=== PATIENT | female | born 1980 | race Caucasian/White ===

== ENCOUNTER 2023-10-31 13:15 | Inpatient (IN) | payer BC, SELFPAY ==
[2023-10-31 08:14] VITALS: BP 113/92
[2023-10-31] MEDS: ZOFRAN ODT (ORALLY DISINTEGRATING) 4 MG PO (08:26)
--- NOTE | 2023-10-31 09:00 | ED.GENMED ---
History of Present Illness
General
Chief Complaint: Headache
Source: patient and spouse
Exam Limitations: none
Time Seen by Provider: 10/31/23 08:50
Travel History
Have you had any contact with someone who has COVID-19?: No
Do you have any symptoms of coronavirus? Fever > 100 degrees, chills, cough, shortness of breath, sore throat, loss of taste or smell, muscle aches, or headache?: No
History of Present Illness
History of Present Illness:
43-year-old female started with a headache Wednesday afternoon. Usually responds to Excedrin Migraine and Motrin. However this 1 has not. Severe right-sided somewhat retrobulbar or right frontal with nausea and photophobia. No neurologic symptoms.
Has a history of migraines. Seems to feel somewhat like a migraine although patient is not sure. However degree of headache is much worse than typical migraine.
Past History
Past History
ED Past Medical History: Other (Migraines)
ED Past Surgical History: None and Gynecological
Social History
Tobacco: Non-smoker
Alcohol: Occasional
Drug: None
Personal:
Review of Systems
Review of Systems
All Other Systems: Not applicable
Constitutional: Denies fever
Musculoskeletal: Denies neck pain
Neurological: Denies dizzy, weakness or numbness
Phy Exam
Physical Exam
Physical Exam:
GENERAL: Alert and oriented. Nontoxic but fairly quiet and wants to keep her eyes closed lying on her side
EYE: Orbits normal. Extraocular muscles intact. Discharge
NECK: Supple, no carotid bruit
CARDIAC: Regular rate and rhythm without any obvious murmurs.
LUNGS: Clear breath sounds,normal
ABDOMEN: Soft, without focal tenderness or distention
NEUROLOGICAL: Alert and oriented , grossly non-focal. Speech normal. Store Consultant normal but generally weak. Lower extremity strength normal. Nonfocal.
SKIN: Warm and dry, no rash or lesion, no discoloration, skin intact.
MUSCULOSKELETAL: No edema,no deformity.Good color
PSYCH: Normal and appropriate interaction.
Course
Orders/Labs/Results
Orders:
Orders
10/31/23 08:23
Ondansetron Orally Disint [Zofran Odt (Orally Disintegrating)] 4 mg .ROUTE .STK-MED ONE
10/31/23 08:26
Ondansetron Orally Disint [Zofran Odt (Orally Disintegrating)] 4 mg PO NOW STA
10/31/23 08:58
IV Insert/Care/Rem.- Treatment PRN
0.9% Sodium Chloride 1000 ml [Nss] 1,000 ml IV BOLUS
Acetaminophen 1000MG/100Ml [Ofirmev] 1,000 mg in 100 ml IV ONCE
Acetaminophen IV Indication:: ED Narcotic Naive Pt-ONCE
Diphenhydramine [Benadryl] 25 mg IV NOW STA
Metoclopramide [Reglan] 10 mg IV NOW STA
Test Result ONCE
10/31/23 08:59
CT Head W/o Iv Contrast Urgent
Comment:
Reason For Exam: severe right sided leary
10/31/23 09:03
Basic Metabolic Panel Urgent
Complete Blood Count/With Diff Urgent
Erythrocyte Sed Rate Urgent
HCG, Serum Qualitative Screen Urgent
10/31/23 11:46
Ketorolac [Toradol] 15 mg IV NOW STA
Abnormal Lab Results
10/31/23
09:03
RDW 15.6 H %
(11.5-14.5)
Abs Immat Gran (auto) 0.1 H 10^3/uL
(0-0.05)
Absolute Neuts (auto) 7.5 H 10^3/uL
(1.4-6.5)
Neutrophils % 77.6 H %
(42.2-75.2)
Lymphocytes % 14.0 L %
(20.5-51.1)
Creatinine 0.4 L mg/dL
(0.6-1.0)
Glucose 101 H mg/dl
(70-99)
10/31/23 09:03
10/31/23 09:03
Vital Signs
Initial and Last Documented VS:
Initial Vital Signs
Temp Pulse Resp BP Pulse Ox
97.6 F 83 20 113/92 99
10/31/23 08:14 10/31/23 08:14 10/31/23 08:14 10/31/23 08:14 10/31/23 08:14
Last Documented Vital Signs
Temp Pulse Resp BP Pulse Ox
97.6 F 67 16 115/78 98
10/31/23 08:14 10/31/23 11:14 10/31/23 11:14 10/31/23 11:14 10/31/23 11:14
MDM/Problems Addressed
Differential Diagnosis Includes:
Symptom complex is most consistent with a severe migraine. No neurologic symptoms. No neck pain. No chiropractic manipulation. But because this headache is worse than typical we will get a CT. Nothing to suspect carotid dissection at this time.
Will treat for migraine and observe for improvement
*Critical Care Note
Total Time (30-74mins, 75-104mins- exclusive of procedures): Not Applicable
Data Reviewed
Review of Other/Old Records Reveals: Labs and Records
Update Note
Update Note:
Discussed with neurology. Reviewed CT finding. Adenoma possibly has something to do with her headaches. Given her ongoing symptoms and CT findings patient will be admitted for further care and evaluation.
ED Attending Note
-
Portions of this chart may have been created with voice recognition software.� Occasional wrong word or��sound alike� substitutions may have occurred due to the inherent limitations of voice recognition software.
Discharge Plan
Departure
Patient Disposition: Admit
Date of Disposition: 10/31/23
Time of Disposition: 11:46
Presentation/result/management discussed w/ accepting MD/DO: Neurology
Discharge Problem:
Intractable headache, Pituitary adenoma
Prescriptions:
No Action
Liver Pills
1 tab PO DAILY
ferrous sulfate 325 mg (65 mg iron) tablet
325 mg PO Q OTHER DAY Qty: 15 1RF
tranexamic acid 650 mg tablet
1,300 mg PO TID Qty: 30 0RF
Rx Instructions:
Take this medication only until vaginal bleeding stops so if bleeding stops in 2 days then stop. Max 5 days
cephalexin 500 mg capsule
500 mg PO Q6H 7 Days Qty: 28 0RF
Referrals:
Aurelio Morse MD [Family Provider] -
Interventions
Interventions:
*Risk Screen - Suicide Last Done: 10/31/23 09:00
*General Assessment Last Done: 10/31/23 09:00
*Neglect/Abuse Screening Last Done: 10/31/23 09:00
*ED COVID-19 Vaccine History Last Done: 10/31/23 09:00
ED- Neurological Assessment Last Done: 10/31/23 09:00
[2023-10-31] MEDS: REGLAN 10 MG IV ×2 (09:11→22:19)
[2023-10-31] MEDS: BENADRYL 25 MG IV ×2 (09:11→23:58)
[2023-10-31] MEDS: OFIRMEV 100 IV (09:12)
[2023-10-31] MEDS: NSS 1000 IV (09:13)
[2023-10-31 09:36] LABS: % Basophils 0.5 % (0-2); % Eosinophils 1.1 % (0-6); % Immature Granulocytes 0.5 % (0-0.5); % Monocytes 6.3 % (1.7-9.3); % Neutrophils 77.6 % (42.2-75.2); Absolute Basophils 0.1 10^3/uL (0-0.2); Absolute Eosinophils 0.1 10^3/uL (0-0.7); Absolute Immature Granulocytes 0.1 10^3/uL (0-0.05); Absolute Lymphocytes 1.4 10^3/uL (1.2-3.4); Absolute Monocytes 0.6 10^3/uL (0.1-0.6); Absolute Neutrophils 7.5 10^3/uL (1.4-6.5); Hematocrit 37.4 % (37.0-47.0); Hemoglobin 13.3 g/dL (12.0-16.0); Mean Corp Hgb Conc. 35.6 g/dL (33.0-37.0); Mean Corpuscular Hgb 28.9 pg (27.0-31.0); Mean Corpuscular Volume 81.1 fL (81.0-99.0); Mean Platelet Volume 8.6 fL (7.4-10.4); Nucleated Red Blood Cells % 0 %; Platelet Count 265 10^3/uL (130-400); Red Blood Cell Count 4.61 10^6/uL (4.20-5.40); Red Cell Dist. Width 15.6 % (11.5-14.5); White Blood Cell Count 9.7 10^3/uL (4.8-10.8)
[2023-10-31 09:40] LABS: HCG, Serum Qualitative Screen Negative
[2023-10-31 09:45] LABS: Blood Urea Nitrogen 8 mg/dl (7-17); Calcium 9.3 mg/dl (8.4-10.2); Carbon Dioxide 24 mmol/L (22-30); Chloride 102 mmol/L (98-107); Glucose 101 mg/dl (70-99); Potassium 3.8 mmol/L (3.5-5.1); Sodium 136 mmol/L (135-145); eGFR > 60.00
[2023-10-31 10:06] LABS: Erythrocyte Sed Rate 18 mm/hour (0-20)
[2023-10-31 11:14] VITALS: BP 115/78
[2023-10-31] MEDS: TORADOL 15 MG IV (11:50)
--- NOTE | 2023-10-31 12:34 | HPS.HSE ---
Family Physician
-
Family Physician: Aurelio Morse
Chief Complaint
-
Severe headache
History of Present Illness
43-year-old woman started with a headache 2 days ago.� She Usually responds to Excedrin Migraine and Motrin, however this time it has not.� She has Severe right-sided retrobulbar - right frontal headache, with associated nausea and photophobia.� No
focal neurologic symptoms.� Has does have a history of migraines and although this seems to feel a bit like a migraine, she is not certain this is like her migraine.� However, the degree of headache is much worse than typical migraine. No change in
caffeine, no recent illness. No obvious trigger. No cahnges in vision.
Medical History
Past Medical History
Past Medical History: Reports Other
Additional Past Medical History:
Migraines
Iron deficiency anemia
Mild intermittent asthma without complication
Vitamin D deficiency
Cyst of right breast
vaginal bleeding
diabetes mellitus, likely type two, not taking medication for it. (? found in chart)
colon cancer (? found in chart) not likely, but does have diverticulosis
CAD (coronary artery disease) (? Found in chart)
Past Surgical History: Reports Other
Additional Past Surgical History:
None
Social History
Tobacco: Non-smoker
Alcohol: None
Drug: None
Personal:
Living: With Family
Family History
Family History: Not pertinent
Allergies / Home Medications
Allergies reflects when Allergies were last updated in [facility].
Home Medications with original date entered in [facility]
Allergy/Medication List:
Allergies
Allergy/AdvReac Type Severity Reaction Status Date / Time
bee venom protein (honey bee) Allergy Intermediate Swelling Verified 10/31/23 08:14
codeine AdvReac VOMITING, Verified 10/31/23 08:14
RASH
Home Medications
Liver Pills 1 tab PO DAILY Supplement 07/21/23
ferrous sulfate 325 mg (65 mg iron) tablet 325 mg PO Q OTHER DAY #15 tabs 07/23/23
tranexamic acid 650 mg tablet 1,300 mg PO TID #30 tabs 07/23/23
cephalexin 500 mg capsule 500 mg PO Q6H 7 days #28 caps 07/25/23
Review of Systems
-
History Source: Patient
A 12 point ROS was completed and negative except as noted: Yes
Physical Exam
Vital Signs
Vital Signs
Temp Pulse Resp BP Pulse Ox
97.6 F 67 16 115/78 98
10/31/23 08:14 10/31/23 11:14 10/31/23 11:14 10/31/23 11:14 10/31/23 11:14
Physical Exam
General: Well Developed, Well Nourished, Pain and Obese
HEENT: NormoCephalic, Moist mucous membranes, Nose Appears Normal and Ears Appear Normal
Respiratory: Clear
Cardiac: S1/S2 and Regular Rhythm
GI: Soft, Non Tender and Non Distended
Musculoskeletal: No Clubbing, No Cyanosis and No Edema
Skin: Warm and Dry; No Rash or Jaundice
Neuro: Awake, Alert, Oriented and AO x 3
Psych: Calm
Laboratory Results
-
10/31/23 09:03
10/31/23 09:03
Data Reviewed
-
Lab Data: Labs Reviewed by me
Impression/Plan
-
IMPRESSION:
43 woman with severe headache. CT shows:
1. � There is no acute intracranial process.
2. � The images suggest increased size of a previously noted pituitary mass, follow-up with contrast-enhanced dedicated pituitary MRI is recommended.
PLAN:
1. Severe RIOS - intractable
Neurology consult
Dexamethasone 10 mg IV
Valproic acid 500 mg IV
MRI tomorrow as recommended above
IV fluids as she is likely to have decreased PO today
Check labs for the pituitary mass
ACTH
TSH
Prolactin
2. possible DM - found on medical record
Check HGA1c
Double check PMH and home meds when patient feels better
Med record states she has colon cancer, but evidence of this could not be found otherwise.
VCD for DVTp
Full code
[2023-10-31 12:49] VITALS: BP 99/60
[2023-10-31] MEDS: DECADRON 10 MG IV (13:14)
[2023-10-31 15:00] VITALS: BP 105/62
[2023-10-31] MEDS: LR 1000 IV (15:20)
[2023-10-31] MEDS: DEPACON 55 MG IV (15:36)
--- NOTE | 2023-10-31 15:54 | CON.NEURO ---
Consultation
Order
CC: Headache
HPI: This is a 43-year-old woman who presented to [facility] on October 31, 2023 with headache. According to the patient she developed gradual in onset right retro-orbital and temporal dull moderate to severe nonpositional headache
with associated nausea and emesis on 10/29/2023. Ms. Yusuf states that she has had similar headaches for many years usually responding to [id number] NSAIDs. No reports of head trauma, fever recently started to discontinued medications,
visual, motor or sensory deficits.
ER VS: 113/92, 83, afebrile
PDMP:Oxycodone-Acetaminophen 5-325 10 tabs filled in on 09/02/2023
Labs: Normal WBCs, sodium, glucose,
ER medications, ketorolac�50 mg, Benadryl�25 mg, dexamethasone�10 mg, Depacon 500 mg, Tylenol�1 g IV, IV fluids, ondansetron�[address] head wo contrast(10/31/2023)-increased size of a previously noted pituitary mass
Brain MRI w/wo cassie(08/11/2018)-nonenhancing 9 mm x 12 mm x 11 mm AP pituitary mass.
The patient failed to follow up with the above finding
PMH: pituitary mass, Fe deficiency, obesity, IBS, celiac disease, DUB
PSH: [place] teeth removal, uterine ablation
SH: , has 5 children, non-smoker, denies excessive alcohol use
FH: No family history of headache
All: Codeine
ROS:Constitutional: Negative. Negative for chills, fever and unexpected weight change.
HENT: Negative for ear pain, hearing loss, tinnitus and trouble swallowing.
Eyes: Negative. Negative for photophobia, pain and visual disturbance.
Respiratory: Negative for cough, choking and shortness of breath.
Cardiovascular: Negative for chest pain, palpitations and leg swelling.
Gastrointestinal: Negative for abdominal pain and vomiting.
Endocrine: Negative. Negative for cold intolerance.
Genitourinary: Negative for dysuria, flank pain and urgency.
Musculoskeletal: Negative for back pain, gait problem, neck pain and neck stiffness.
Skin: Negative for rash.
Allergic/Immunologic: Negative. Negative for immunocompromised state.
Neurological: Positive for headache
Psychiatric/Behavioral: Negative for behavioral problems, confusion and hallucinations.
General: Well developed. In moderate distress due to headache
Cardio: Regular rate and rhythm without murmur. Extremities are without cyanosis or edema.
Neuro:
Mental Status: Alert, oriented to person, place, and date. Normal attention and recall. Good fund of knowledge. Follows complex requests across the midline. Comprehension, naming, and repetition intact. Immediate and delayed recall 3/3.
Cranial Nerves: . Pupils are equally round and reactive to light. EOMs full. Visual redmond full to confrontation. No ptosis. No nystagmus. V1-V3 intact to light touch and pinprick bilaterally, symmetric. Face symmetric. Normal hearing AU.
The palate elevated well. SCMs and traps 5/5. Tongue midline. No dysarthria.
Motor: Normal bulk and tone. No pronator or arm drift. Strength 5/5 throughout. No clonus.
Reflexes: 2+ throughout the upper extremities and knees. 2/2 in AJs. Plantar responses flexor bilaterally.
Sensory: Normal pinprick, vibration and JPS.
Coordination: No dysmetria or tremor.
Gait: deferred
Assessment and Plan:
I. Status migrainous
II. Pituitary mass
III. Episodic migraine wo aura
-Please check magnesium, ESR, CRP, TFTs, prolactin, TSH, ACTH, D Dimers
-IV Toradol 30 mg, Reglan 10 mg, Benadryl 25 mg Q8h PRN for moderate to severe headache.
-EKG
-Brain MRI with gadolinium
-DVT prophylaxis
-Case was discussed with patient's spouse
I personally reviewed all radiology and labs along with past medical records pertinent to current medical problems. Total time spent in patient care is 60 minutes.
Thank you for allowing us to participate in the care of this patient. We will continue to follow. Please do not hesitate to contact us with any questions or concerns.
Subjective/Objective
Subjective Data
Date of Service: October 31, 2023
Objective Data
Vital Signs
Temp Pulse Resp BP Pulse Ox
36.4 C 83 16 99/60 99
10/31/23 08:14 10/31/23 12:49 10/31/23 12:49 10/31/23 12:49 10/31/23 12:49
Lab Results
10/31/23 09:03
10/31/23 09:03
Sodium 136 mmol/L (135-145) 10/31/23 09:03
Potassium 3.8 mmol/L (3.5-5.1) 10/31/23 09:03
BUN 8 mg/dl (7-17) 10/31/23 09:03
Glucose 101 mg/dl (70-99) H 10/31/23 09:03
Calcium 9.3 mg/dl (8.4-10.2) 10/31/23 09:03
Patient Allergies
bee venom protein (honey bee) Allergy (Intermediate, Verified 10/31/23 08:14)
Swelling
codeine Adverse Reaction (Verified 10/31/23 08:14)
VOMITING, RASH
Medications
-
Active Medications
Generic Name Dose Route Start Last Admin
Trade Name Freq PRN Reason Stop Dose Admin
Lactated Ringer's 1,000 mls @ 125 mls/hr 10/31/23 14:25 10/31/23 15:20
Lr IV 1,000 mls
.Q8H CRIS Administration
Valproate Sodium 500 mg/ 55 mls @ 55 mls/hr 10/31/23 14:25 10/31/23 15:36
Sodium Chloride IV 11/28/23 14:24 55 mls
Q12H CRIS Administration
Ketorolac Tromethamine 10 mg 10/31/23 17:00
Ketorolac 15 Mg/Ml Injection IV 11/05/23 16:59
Q6HPRN PRN
moderate pain
Ondansetron HCl 4 mg 10/31/23 14:25
Ondansetron 4 Mg/2 Ml Vial IV 11/28/23 14:24
Q6HPRN PRN
nausea and vomiting
Sodium Chloride 0 flush 10/31/23 16:00
Sodium Chloride 0.9% (Flush) Syringe IV 11/28/23 15:59
PER PROTOCOL CRIS
Home Medications
Medication Instructions Recorded
Liver Pills 1 tab PO DAILY Supplement 07/21/23
ferrous sulfate 325 mg (65 mg 325 mg PO Q OTHER DAY #15 tabs 07/23/23
iron) tablet
tranexamic acid 650 mg tablet 1,300 mg PO TID #30 tabs 07/23/23
cephalexin 500 mg capsule 500 mg PO Q6H 7 days #28 caps 07/25/23
Vital Signs and Labs
-
Vital Signs and Labs:
Vital Signs
Temp Pulse Resp BP Pulse Ox
36.4 C 83 16 99/60 99
10/31/23 08:14 10/31/23 12:49 10/31/23 12:49 10/31/23 12:49 10/31/23 12:49
Lab Results
10/31/23 09:03
10/31/23 09:03
Sodium 136 mmol/L (135-145) 10/31/23 09:03
Potassium 3.8 mmol/L (3.5-5.1) 10/31/23 09:03
BUN 8 mg/dl (7-17) 10/31/23 09:03
Glucose 101 mg/dl (70-99) H 10/31/23 09:03
Calcium 9.3 mg/dl (8.4-10.2) 10/31/23 09:03
Home Medications
-
Home Medications
Liver Pills 1 tab PO DAILY Supplement 07/21/23
ferrous sulfate 325 mg (65 mg iron) tablet 325 mg PO Q OTHER DAY #15 tabs 07/23/23
tranexamic acid 650 mg tablet 1,300 mg PO TID #30 tabs 07/23/23
cephalexin 500 mg capsule 500 mg PO Q6H 7 days #28 caps 07/25/23
Medications
-
Medications:
Generic Name Dose Route Start Last Admin
Trade Name Freq PRN Reason Stop Dose Admin
Lactated Ringer's 1,000 mls @ 125 mls/hr 10/31/23 14:25 10/31/23 15:20
Lr IV 1,000 mls
.Q8H CRIS Administration
Valproate Sodium 500 mg/ 55 mls @ 55 mls/hr 10/31/23 14:25 10/31/23 15:36
Sodium Chloride IV 11/28/23 14:24 55 mls
Q12H CRIS Administration
Ketorolac Tromethamine 10 mg 10/31/23 17:00
Ketorolac 15 Mg/Ml Injection IV 11/05/23 16:59
Q6HPRN PRN
moderate pain
Ondansetron HCl 4 mg 10/31/23 14:25
Ondansetron 4 Mg/2 Ml Vial IV 11/28/23 14:24
Q6HPRN PRN
nausea and vomiting
Sodium Chloride 0 flush 10/31/23 16:00
Sodium Chloride 0.9% (Flush) Syringe IV 11/28/23 15:59
PER PROTOCOL CRIS
[2023-10-31] MEDS: TORADOL 10 MG IV ×2 (17:12→23:59)
[2023-10-31 17:38] VITALS: BMI 31.5
[2023-10-31 18:25] LABS: Magnesium 1.9 mg/dl (1.6-2.3)
[2023-10-31 19:01] LABS: TSH 2.37 uIU/ml (0.47-4.68)
[2023-10-31 23:02] VITALS: BP 101/59
[2023-11-01] MEDS: LR 1000 IV ×3 (00:49→18:12)
[2023-11-01] MEDS: DEPACON 55 MG IV ×2 (02:22→13:33)
[2023-11-01] MEDS: TORADOL 10 MG IV ×3 (05:59→21:36)
[2023-11-01] MEDS: BENADRYL 25 MG IV ×2 (06:03→21:34)
[2023-11-01] MEDS: REGLAN 10 MG IV ×3 (06:04→21:35)
[2023-11-01 07:25] VITALS: BP 107/55
[2023-11-01 08:26] LABS: Hematocrit 36.5 % (37.0-47.0); Hemoglobin 12.7 g/dL (12.0-16.0); Mean Corp Hgb Conc. 34.8 g/dL (33.0-37.0); Mean Corpuscular Hgb 29.1 pg (27.0-31.0); Mean Corpuscular Volume 83.7 fL (81.0-99.0); Mean Platelet Volume 9.2 fL (7.4-10.4); Platelet Count 290 10^3/uL (130-400); Red Blood Cell Count 4.36 10^6/uL (4.20-5.40); Red Cell Dist. Width 15.7 % (11.5-14.5); White Blood Cell Count 13.5 10^3/uL (4.8-10.8)
[2023-11-01 09:04] LABS: Blood Urea Nitrogen 7 mg/dl (7-17); Carbon Dioxide 20 mmol/L (22-30); Chloride 107 mmol/L (98-107); Estimated Creatinine Clearance > 125 ml/min; Glucose 86 mg/dl (70-99); Magnesium 1.9 mg/dl (1.6-2.3); Potassium 4.1 mmol/L (3.5-5.1); Sodium 133 mmol/L (135-145); eGFR > 60.00
--- NOTE | 2023-11-01 09:49 | W.PN.HOSP.TC ---
Today's Communication/Plan
-
Awaiting completion of laboratory profiling address possible enlarging pituitary mass
Awaiting MRI brain with cassie
Continue IV fluids and antiemetics
Not much results with migraine cocktail/await input from neurology after review of MRI
Will keep inpatient status until results of MRI
Assessment / Plan
Assessment / Plan
43-year-old woman started with a headache 2 days ago.� She Usually responds to Excedrin Migraine and Motrin, however this time it has not.� She has Severe right-sided retrobulbar - right frontal headache, with associated nausea and photophobia.� No
focal neurologic symptoms.� Has does have a history of migraines and although this seems to feel a bit like a migraine, she is not certain this is like her migraine.� However, the degree of headache is much worse than typical migraine.� No change in
caffeine, no recent illness.� No obvious trigger.� No cahnges in vision.
Past Medical History
Past Medical History: Reports Other
Additional Past Medical History:
Migraines
Iron deficiency anemia
Mild intermittent asthma without complication
Vitamin D deficiency
Cyst of right breast
vaginal bleeding
diabetes mellitus, likely type two, not taking medication for it.�(? found in chart)
colon cancer�(? found in chart) not likely, but does have diverticulosis
CAD (coronary artery disease)�(? Found in chart)
Past Surgical History: Reports Other
Additional Past Surgical History:
None
CT scan of the head showed no acute intracranial process but does show change in size of pituitary mass that was noted on MRI some 5 years ago
1.� Severe RIOS - intractable
Assess for status migrainosus versus effects of enlarging pituitary mass
Neurology consult
Dexamethasone 10 mg IV/did not keep on maintenance awaiting MRI results
Valproic acid 500 mg IV/migraine cocktail given/Toradol/Reglan/Benadryl
MRI tomorrow as recommended above
IV fluids as she is likely to have decreased PO today
Antiemetics
Check labs for the pituitary mass
ACTH is pending
TSH= 2.37
Prolactin still pending
C-reactive protein 20.6
hCG was negative
2.� possible DM - found on medical record
Check HGA1c
Double check PMH and home meds when patient feels better
Med record states she has colon cancer, but evidence of this could not be found otherwise.
VCD for DVTp
Full code
Anticipated Discharge: 24 - 48 hours
Subjective/Interval History
-
Date of Service: November 01, 2023
Her headache continues although does not seem to be as global and more referred to the right side than yesterday still describes it is anywhere from 6-8 out of 10 with minimal relief with analgesics and migraine cocktail overnight. Continued nausea.
Objective Data
-
Labs:
Laboratory Results
11/01/23
07:57
WBC 13.5 H
Hgb 12.7
Hct 36.5 L
Plt Count 290
Sodium 133 L
Potassium 4.1
Chloride 107
Carbon Dioxide 20 L
BUN 7
Creatinine 0.5 L
Glucose 86
Calcium 9.0
Vital Signs:
Vital Signs
Temp Pulse Resp BP Pulse Ox
98 F 70 16 107/55 97
11/01/23 07:25 11/01/23 07:25 11/01/23 07:25 11/01/23 07:25 11/01/23 07:25
I&O
10/31/23 11/01/23 11/02/23
06:59 06:59 06:59
Intake Total 2334 / 233
Balance 2334
Review of Systems
-
History Source: Patient
Constitutional: Reports No Symptoms
EENT: Reports Other (Denies any eye or acuity changes)
Respiratory: Reports No Symptoms
Cardiac: Reports No Symptoms
Abdomen/GI: Reports Nausea
Musculoskeletal: Reports Myalgias (Right-sided headache)
Neuro: Reports Headache (Right side)
Physical Exam
-
General: Well Developed
HEENT: Normocephalic
Respiratory: Clear to Auscultation
Cardiac: Regular Rhythm
GI: Soft
Neuro: Awake, Alert, Oriented, AO x 3, No Motor Deficits and Other (No meningeal signs/no eye findings pupils equal and reactive)
Psych: Calm
Data Reviewed
-
Total Time Spent with Patient (in minutes): 67
Labs: Labs Reviewed by me (White count 13.5 will single dose of Dex Methasone she got yesterday in ED)
--- NOTE | 2023-11-01 09:58 | W.PN.NEURO.1 ---
Addendum entered and electronically signed by Scotty Mcgovern MD 11/01/23 15:38:
Did not tolerate DHE
Can try triptan tomorrow
Would try an IV steroid again tomorrow morning, not today as this will produce insomnia
Discussed the results of the MRI brain with the patient and her and the findings of the pituitary gland starting to compress the optic chiasm, indicating that this needs neurosurgical opinion. Will reach out to our colleagues at the
[place] [facility].
Patient has not had visual changes to her knowledge, on my exam normal visual redmond and normal EOM with no signs indicating active problem in the cavernous sinus cranial nerves, no eye proptosis or edema and normal EOM's.
Will continue to follow
Original Note:
Today's Communication / Plan
-
-Check MRI with and without contrast to evaluate pituitary
Migraine cocktail
-Dihydroergotamine 1 mg IV every 8 hours for 6 total doses
-Give with 10 mg IV metoclopramide every 8 hours for 6 doses
-10 mg IV ketorolac every 8 hours for 6 doses
Can consider additional steroids tomorrow if not improving
Would stop Zofran to avoid multiple QTc prolonging medications
Will finish valproic acid IV after today
IV fluid hydration
Supportive care
Neuro Assessment/Plan
Assessment
3-year-old woman presenting with status migrainosus, no obvious precipitant
Reports having had similar headache in the past responding to NSAIDs
Has had some associated nausea and vomiting along with mild photophobia
Medical history includes iron deficiency obesity irritable bowel syndrome celiac disease
Previously patient had had a brain MRI in 2018 for tingling on the face showed mildly enlarged pituitary gland concerning for potentially pituitary adenoma
Patient has not had symptoms suggestive of a hormonally active pituitary adenoma
Most likely diagnosis is status migrainosus and the patient appears to have migraine without aura usually responding to NSAIDs, I am less suspicious that the pituitary adenoma is causing her related to her current headache although remains in
differential diagnosis, MRI imaging is felt warranted
Subjective/Objective
Subjective Data
Date of Service: November 01, 2023
No acute events, patient still with significant headache around 8/10 level although it has improved compared to past few days, does have nausea and photophobia
Objective Data
Vital Signs
Temp Pulse Resp BP Pulse Ox
98 F 70 16 107/55 97
11/01/23 07:25 11/01/23 07:25 11/01/23 07:25 11/01/23 07:25 11/01/23 07:25
Lab Results
11/01/23 07:57
11/01/23 07:57
Sodium 133 mmol/L (135-145) L 11/01/23 07:57
Potassium 4.1 mmol/L (3.5-5.1) 11/01/23 07:57
BUN 7 mg/dl (7-17) 11/01/23 07:57
Glucose 86 mg/dl (70-99) 11/01/23 07:57
Calcium 9.0 mg/dl (8.4-10.2) 11/01/23 07:57
Patient Allergies
bee venom protein (honey bee) Allergy (Intermediate, Verified 10/31/23 08:14)
Swelling
codeine Adverse Reaction (Verified 10/31/23 08:14)
VOMITING, RASH
Review of Systems
-
History Source: Patient
All other systems: Reviewed and negative
Constitutional: No Symptoms
EENT: No Symptoms Reported
Respiratory: No Symptoms
Cardiac: No Symptoms
Abdomen/GI: No Symptoms
Genitourinary: No Symptoms
Musculoskeletal: No Symptoms
Skin: No Symptoms
Neuro: Headache
Endocrine: No Symptoms
Hematologic / Lymphatic: No Symptoms
Allergy / Immunology: No Symptoms
Physical Exam
-
General: Other (Uncomfortable, no overt distress)
HEENT: Atraumatic
Neck: Full Range of Motion
Respiratory: No Dyspnea
Cardiac: Regular Rhythm and No Murmur
GI: Soft and Non-tender
Skin: Warm and Dry; Negative Rash
Extremities: No Edema
Psych: Intact Judgement/Insight; Negative Confused or Agitated
Extended Neurological Exam
Attention Span & Concentration: Awake, Alert, Interactive and No Difficulty with 2 Step Request
Memory: Unremarkable and Able to Recall
Tremor: Hand Tremor Absent
Involuntary Movement: None
Speech: Quality Unremarkable and Quantity Unremarkable
Cranial Nerve II: Left Eye: Pupillary Reactivity Unremarkable and Pupillary Size Unremarkable
Cranial Nerve II: Right Eye: Pupillary Reactivity Unremarkable and Pupillary Size Unremarkable
Cranial Nerves III, IV, : Extraocular Movement: Extraocular Movement Full in all Directions
Muscle Strength, Overall: Full Throughout
Pronator Drift: No Drift in Upper Extremities
Data Reviewed
-
CT Head: Report Reviewed and Image Reviewed
MRI Head: Ordered and Pending
--- NOTE | 2023-11-01 10:41 | PTCARENOTE ---
Patient received awake , said her pain was 'a little better ' than yesterday. Encouraged small meals, tolerating crackers and cola. Able to make needs known.
--- NOTE | 2023-11-01 10:57 | CM ---
Patient seen bedside.
IA completed.
Patient lives with spouse in a 2 story home with their children.
Patient independent prior to admission without assistive devices.
Patient drives.
No hx VN or skilled.
Denies home care needs.
PCP: Dr Morse
Pharmacy: [facility]
Plan: home no needs anticiapted.
[2023-11-01] MEDS: DHE-45 1 MG IV (13:23)
--- NOTE | 2023-11-01 14:18 | PTCARENOTE ---
I gave patient the 1 ml of Dihydroergotamine after the reglan, she told me a few minutes after that she did not like the way it felt.. Stated her face felt flushed and her heart was racing. Her pulse was 88. I sat with her for a few minutes , then
she said she was ok. Told me she doesnt want to use that again, stated the Toradol and reglan did help though. Dr Mcgovern notified.
[2023-11-01 15:30] VITALS: BP 115/77
--- NOTE | 2023-11-01 15:30 | W.PN.UPDATE ---
Update Note
Progress Note Update
Reviewed results of MRI and enlarging pituitary macroadenoma with neurology they will place consult with neurosurgery also placed consult with endocrinology for follow-up as outpatient
[2023-11-01 15:40] VITALS: BP 115/77
[2023-11-01 21:26] LABS: Prolactin 34.6 ng/ml (3.0-18.6)
[2023-11-01 23:36] VITALS: BP 99/49
[2023-11-02] MEDS: LR 1000 IV ×2 (02:40→08:28)
[2023-11-02] MEDS: REGLAN 10 MG IV (05:08)
[2023-11-02] MEDS: TORADOL 10 MG IV ×2 (05:09→13:14)
[2023-11-02 07:27] LABS: Mean Corp Hgb Conc. 35.5 g/dL (33.0-37.0); Mean Corpuscular Hgb 29.1 pg (27.0-31.0); Mean Platelet Volume 9.1 fL (7.4-10.4); Platelet Count 221 10^3/uL (130-400); Red Blood Cell Count 3.78 10^6/uL (4.20-5.40); Red Cell Dist. Width 15.9 % (11.5-14.5); White Blood Cell Count 7.7 10^3/uL (4.8-10.8)
[2023-11-02 07:30] VITALS: BP 97/53
[2023-11-02] MEDS: SOLU-MEDROL PF 125 MG IV (08:29)
--- NOTE | 2023-11-02 09:24 | W.PN.NEURO.1 ---
Today's Communication / Plan
-
Change dihydroergotamine to the use of rizatriptan despite likely diagnosis of migraine with aura
Patient may require additional therapy outside usual formulary including Ubrogepant
Patient received single dose of steroids
Provide diphenhydramine 50 mg at bedtime
Continue patient's usual caffeine
Restart valproic acid
Neuro Assessment/Plan
Assessment
43-year-old woman presenting with status migrainosus, no obvious precipitant
Reports having had similar headache in the past responding to NSAIDs
Has had some associated nausea and vomiting along with mild photophobia
Previously patient had had a brain MRI in 2018 for tingling on the face showed mildly enlarged pituitary gland concerning for potentially pituitary adenoma
Patient has not had symptoms suggestive of a hormonally active pituitary adenoma
Most likely diagnosis is status migrainosus and the patient appears to have migraine without aura usually responding to NSAIDs not suspicious that the pituitary adenoma is causing her related to her current headache
MRI of the brain does demonstrate mildly increased size pituitary adenoma which will likely require assistance from endocrinology
Plan
Change dihydroergotamine to the use of rizatriptan despite likely diagnosis of migraine with aura
Patient may require additional therapy outside usual formulary including Ubrogepant
Patient received single dose of steroids
Provide diphenhydramine 50 mg at bedtime
Continue patient's usual caffeine
Restart valproic acid
Subjective/Objective
Subjective Data
Date of Service: November 02, 2023
Lowest intensity 3/10, usually 6/10.
Objective Data
Vital Signs
Temp Pulse Resp BP Pulse Ox
36.7 C 58 18 97/53 95
11/02/23 07:30 11/02/23 07:30 11/02/23 07:30 11/02/23 07:30 11/02/23 07:30
Lab Results
11/02/23 06:36
11/01/23 07:57
Sodium 133 mmol/L (135-145) L 11/01/23 07:57
Potassium 4.1 mmol/L (3.5-5.1) 11/01/23 07:57
BUN 7 mg/dl (7-17) 11/01/23 07:57
Glucose 86 mg/dl (70-99) 11/01/23 07:57
Calcium 9.0 mg/dl (8.4-10.2) 11/01/23 07:57
Patient Allergies
bee venom protein (honey bee) Allergy (Intermediate, Verified 10/31/23 08:14)
Swelling
codeine Adverse Reaction (Verified 10/31/23 08:14)
VOMITING, RASH
Review of Systems
-
History Source: Patient
All other systems: Reviewed and negative
EENT: Other (right eye droop); Negative Decreased Vision
Respiratory: Negative Trouble Breathing
Cardiac: Negative Chest Pain
Abdomen/GI: Negative Incontinence of Stool
Genitourinary: Negative Incontinence
Musculoskeletal: Negative Back Pain or Neck Pain
Neuro: Dizzy and Headache
Physical Exam
-
General: Other (Uncomfortable, no overt distress)
Eyes: Round OU; Negative No Ptosis (Mildly variable ptosis on the right, none on the left)
HEENT: Normocephalic and Atraumatic
Neck: Full Range of Motion
Respiratory: No Dyspnea
Cardiac: No JVD
GI: Non-distended
Skin: Warm and Dry; Negative Rash
Extremities: No Clubbing, No Cyanosis and No Edema
Psych: Intact Judgement/Insight; Negative Confused or Agitated
Extended Neurological Exam
Mood & Affect: Mood Unremarkable and Affect Unremarkable
Attention Span & Concentration: Awake, Alert, Interactive and No Difficulty with 2 Step Request
Memory: Unremarkable
Tremor: Hand Tremor Absent and Head Tremor Absent
Involuntary Movement: None
Speech: Quality Unremarkable and Quantity Unremarkable
Cranial Nerve II: Left Eye: Pupillary Reactivity Unremarkable, Pupillary Size Unremarkable and Visual Kamara Grossly Intact
Cranial Nerve II: Right Eye: Pupillary Reactivity Unremarkable, Pupillary Size Unremarkable and Visual Kamara Grossly Intact
Cranial Nerves III, IV, : Extraocular Movement: Grossly Intact
Cranial Nerve VII: Facial Symmetry: Normal Facial Symmetry
Cranial Nerve VIII: Hearing: Unremarkable Hearing to Normal Conversational Volume
Muscle Strength, Overall: Full Throughout
Muscle Bulk & Tone: Bulk Unremarkable and Tone Unremarkable
Pronator Drift: No Drift in Upper Extremities
Coordination: [id number] Testing Unremarkable
Data Reviewed
-
MRI Head: Report Reviewed
Labs: Ordered and Report Reviewed
Reviewed with: Physician, Patient and Family
Old Records: Summarized
Past History
Past History
ED Past Medical History: Other (Migraines)
ED Past Surgical History: None and Gynecological
Social History
Tobacco: Non-smoker
Alcohol: Occasional
Drug: None
Personal:
Medications
-
Medications:
Generic Name Dose Route Start Last Admin
Trade Name Freq PRN Reason Stop Dose Admin
Diphenhydramine HCl 25 mg 10/31/23 20:17 11/01/23 21:34
Diphenhydramine 50 Mg/Ml 1 Ml Vial IV 11/28/23 20:16 25 mg
Q4HPRN PRN Administration
migraine
Lactated Ringer's 1,000 mls @ 125 mls/hr 10/31/23 14:25 11/02/23 08:28
Lr IV 1,000 mls
.Q8H CRIS Administration
Ketorolac Tromethamine 10 mg 11/01/23 14:00 11/02/23 05:09
Ketorolac 15 Mg/Ml Injection IV 11/03/23 06:01 10 mg
Q8H CRIS Administration
Metoclopramide HCl 10 mg 11/01/23 14:00 11/02/23 05:08
Metoclopramide 10 Mg/2 Ml Vial IV 11/03/23 06:01 10 mg
Q8H CRIS Administration
Sodium Chloride 0 flush 10/31/23 16:00
Sodium Chloride 0.9% (Flush) Syringe IV 11/28/23 15:59
PER PROTOCOL CRIS
[2023-11-02 09:54] LABS: Erythrocyte Sed Rate 16 mm/hour (0-20)
[2023-11-02] MEDS: MAXALT MLT (ORALLY DISINTEGRATING) 10 MG PO (10:24)
--- NOTE | 2023-11-02 11:13 | W.PN.HOSP.TC ---
Today's Communication/Plan
-
Headache slowly improving
Await neurosurgical input regarding MRI findings of enlarging pituitary macroadenoma
Have: To endocrinology for needed follow-up as outpatient
Headache management as per neurology
Assessment / Plan
Assessment / Plan
43-year-old woman started with a headache 2 days ago.� She Usually responds to Excedrin Migraine and Motrin, however this time it has not.� She has Severe right-sided retrobulbar - right frontal headache, with associated nausea and photophobia.� No
focal neurologic symptoms.� Has does have a history of migraines and although this seems to feel a bit like a migraine, she is not certain this is like her migraine.� However, the degree of headache is much worse than typical migraine.� No change in
caffeine, no recent illness.� No obvious trigger.� No cahnges in vision.
Past Medical History
Past Medical History: Reports Other
Additional Past Medical History:
Migraines
Iron deficiency anemia
Mild intermittent asthma without complication
Vitamin D deficiency
Cyst of right breast
vaginal bleeding
diabetes mellitus, likely type two, not taking medication for it.�(? found in chart)
colon cancer�(? found in chart) not likely, but does have diverticulosis
CAD (coronary artery disease)�(? Found in chart)
Past Surgical History: Reports Other
Additional Past Surgical History:
None
CT scan of the head showed no acute intracranial process but does show change in size of pituitary mass that was noted on MRI some 5 years ago
MRI: 1.6 x 2.9 x 2.2 cm pituitary mass significantly increased from 2018 reflecting growth of a pituitary macroadenoma with internal cystic/necrotic components. 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
cavernosus sinus invasion
1.� Severe RIOS - intractable
Assess for status migrainosus versus effects of enlarging pituitary mass
Neurology consult
Seemed to have more benefit for headache with the dihydroergotamine
Dexamethasone 10 mg IV/did not keep on maintenance awaiting MRI results
Valproic acid 500 mg IV/migraine cocktail given/Toradol/Reglan/Benadryl
MRI as noted above
- No visual or eye symptoms on exam
- Neurosurgical consultation pending
Based on size of pituitary macroadenoma and is growth in the last 5 years we will need endocrinology follow-up
IV fluids as she is likely to have decreased PO today
Antiemetics
Check labs for the pituitary mass
ACTH is pending
TSH= 2.37
Prolactin elevated at 34.6
C-reactive protein 20.6
hCG was negative
Endocrinology follow-up as outpatient/with Dr. Alejandra Ness
2.� possible DM - found on medical record
Check HGA1c
Double check PMH and home meds when patient feels better
Med record states she has colon cancer, but evidence of this could not be found otherwise.
VCD for DVTp
Full code
Anticipated Discharge: Within 24 hours
Subjective/Interval History
-
Date of Service: November 02, 2023
Relates that her headache grade now is at most 5 out of 10 which is an improvement she continues to deny any visual disturbance and describes the headache more right-sided than left there is no nausea tolerated diet this morning but still not eating
much
Objective Data
-
Labs:
Laboratory Results
11/02/23
06:36
WBC 7.7
Hgb 11.0 L
Hct 31.0 L
Plt Count 221 D
Vital Signs:
Vital Signs
Temp Pulse Resp BP Pulse Ox
98.1 F 58 18 97/53 95
11/02/23 07:30 11/02/23 07:30 11/02/23 07:30 11/02/23 07:30 11/02/23 07:30
I&O
11/01/23 11/02/23 11/03/23
06:59 06:59 06:59
Intake Total 2334 / 172
Balance 2334 / 1724
Review of Systems
-
History Source: Patient
Constitutional: Reports No Symptoms
EENT: Reports No Symptoms Reported
Respiratory: Reports No Symptoms
Abdomen/GI: Reports No Symptoms
Breast: Reports No Symptoms
Genitourinary: Reports No Symptoms
Musculoskeletal: Reports No Symptoms
Physical Exam
-
General: Well Developed
HEENT: Normocephalic, Moist Mucous Membranes, PERRLA and Neck Non Tender
Respiratory: Clear to Auscultation
Cardiac: Regular Rhythm
GI: Soft
Neuro: Awake, Alert and Oriented
Psych: Calm
Data Reviewed
-
MRI: Report Reviewed by me (Significant increase in size of pituitary mass compared to brain MRI of July 2018 showing growth of pituitary macroadenoma with internal cystic and necrotic component components with mass effect upon the optic chiasm
and compression of the cavernosus)
Medical Tests (Nuc Med, Echo etc): Report Reviewed by me
Labs: Labs Reviewed by me
[2023-11-02 11:33] LABS: Ferritin 87.8 ng/ml (6.24-137); TSH Reflex To Free T4 1.61 uIU/ml (0.47-4.68)
[2023-11-02 12:06] LABS: Vitamin B12 571 pg/ml (239-931)
[2023-11-02] MEDS: DEPACON 60 MG IV (13:12)
--- NOTE | 2023-11-02 13:43 | CON.NS ---
Chief Complaint
-
Headache
History of Present Illness
This is a 43-year-old female who presented on 10/31/2023 with severe headache, nausea vomiting. She states she has never had a headache like this before in her life. CAT scan at that time was completed which showed hyperdensity within the pituitary
fossa. MRI subsequently has been completed which shows 2.2 cm macroadenoma. There is evidence of optic chiasm compression. There is mild extension into the cavernous sinus. She notes that her headache is located in the right side of her head.
She notes difficulty and pain when adducting her right eye. She denies any galactorrhea or amenorrhea. She did have irregular menstrual bleeding requiring a endometrial procedure. Since that time she has not have any further bleeding. She
denies any issues with her glove size changing or shoe size or changing. She denies any issues with hot or cold. She does have polyuria however states it has been present for a very long time. She denies any excessive thirst. This pituitary
tumor was diagnosed in 2018 however she states she was lost to follow-up at that point in time. She did not see endocrinology. She has never been seen by neurosurgery. Currently she states that she started to feel marginally better and is able to
eat. She denies any visual issues, loss of peripheral vision, photophobia present. However she did present with photophobia.
Review of Systems
-
10 point review of systems is completed negative except as stated above.
Medication and Allergies
Home Medications
Home Medications
Medication Instructions Recorded
Liver Pills 1 tab PO DAILY Supplement 07/21/23
ferrous sulfate 325 mg (65 mg 325 mg PO Q OTHER DAY #15 tabs 07/23/23
iron) tablet
tranexamic acid 650 mg tablet 1,300 mg PO TID #30 tabs 07/23/23
cephalexin 500 mg capsule 500 mg PO Q6H 7 days #28 caps 07/25/23
Allergies
Allergies
Allergy/AdvReac Type Severity Reaction Status Date / Time
bee venom protein (honey bee) Allergy Intermediate Swelling Verified 10/31/23 08:14
codeine AdvReac VOMITING, Verified 10/31/23 08:14
RASH
Physical Exam
-
Exam:
She is awake alert and orient x 3
Cranial nerves II through XII are grossly intact however there is some mild slowing with adduction of the right eye compared to the left
Pupils are equal and reactive bilaterally.
Visual redmond are full to confrontation
No funduscopic exam was performed
Motor strength testing reveals 5/5 upper and lower extremity strength
Sensory is grossly intact
Reflexes are normal
Respirations are even unlabored
MRI of the brain reveals 2.2 x 2.2 cm pituitary macroadenoma. There is heterogeneous enhancement with areas of hypointensity. T2 gradient sequences reveal areas of loss signal most consistent with hemorrhage. I compared this to her CAT scan which
shows areas of hyperdensity in relative same position as the areas on the MRI. The MRI does reveal right cavernous sinus involvement.
Assessment / Plan
-
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
1. Check basic endocrine labs now
2. Will determine whether or not she requires transfer to [place] for surgical intervention
3. Continue headache control as ordered by neurology
4. Notify neurosurgery if there are any acute changes as there are no acute neurosurgical indications currently however she may require more urgent intervention given her complaints.
5. Will discuss with patient once determination is made regarding transfer.
--- NOTE | 2023-11-02 14:44 | W.PN.UPDATE ---
Update Note
Progress Note Update
In proximal conversation with Dr. 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
that is developed with ptosis in the right eye and also bilateral compression of the cavernosus feel that the patient needs best be served done at tertiary center for neurosurgery intervention not available here or at [place] I have contacted
[facility] and spoke to neurosurgery physician president and patient has been accepted an urgent transfer via [facility] to Dr. Glory greene./Need MRI imaging and disc on transfer have spoken to [place] transfer contact who will be
contacting radiology here to get imaging transmitted to them. I have informed nursing of pending transfer can continue lactated Ringer's as the only infusion at this point she did receive a course of methylprednisolone earlier today.
[2023-11-02 14:56] LABS: FSH 4.2 mIU/ml; Luteinizing Hormone 1.31 mIU/ml; Prolactin 46.8 ng/ml (3.0-18.6)
[2023-11-02 14:59] LABS: Free T3 2.67 pg/ml (2.77-5.27)
[2023-11-02 15:10] LABS: TSH 0.43 uIU/ml (0.47-4.68)
[2023-11-02 15:13] LABS: Cortisol, Random 3.7 ug/dl
--- NOTE | 2023-11-02 15:17 | CM ---
Patient for transfer to [facility]
Helicopter transport Via [facility].
--- NOTE | 2023-11-02 15:20 | W.DCSUMMARY ---
Discharge Summary
Discharge Data
Date of Admission: 10/31/23
Date of Discharge: 11/02/23
-
Pending Results: No
Additional Pending Results:
ACTH, growth hormone,
Hospital Course
43-year-old female who presented on 31 October with severe headache mostly to the right side although initially presented globally with nausea and vomiting. She did state that she has a migraine history but states that this is especially severe
and not like prior headaches. A CT scan of the brain at that time showed hyperdensity within the pituitary fossa she went on to admit that the patient has been lost to follow-up herself after being initially told she had a pituitary adenoma back in
2018 she has not had imaging since that time. She was admitted she was placed on a migraine cocktail headache based on the initial assertion that maybe she was suffering from a status migrainosus and she was seen by neurology who ordered that
cocktail. This only had a minimal effect on her headache she subsequently underwent an MRI of the brain that now shows a 2.2 cm macroadenoma with compression of the optic chiasm and the mild extension into the cavernosus sinus bilaterally in spite
of improvement in her headache and meeting that it was more right-sided she did develop what appears to be some ptosis in her right eye and also pain referring to adducting her right eye. Only other discernible history is that she denies any
history of any galactorrhea or amenorrhea but was diagnosed with a irregular menses requiring endometrial procedure months ago. Since that time she has had no further bleeding. She was seen by the neurosurgical service of Dr. Senthil Estes who
reviewed MRI results and showed concern not only with the compressive changes to the optic chiasm and cavernosus but also suspect hemorrhagic changes that would be consistent with pituitary apoplexy as a cause of her ongoing presentation and now
possible new neurodeficits and his recommendation was that [facility] and [facility] lacked the expertise to intervene with an ENT approach and suggested transfer to a tertiary care center. I spoke to the [facility]
neurosurgery department with recommendation to contact Dr. Roberson at the behest of Dr. Senthil Estes and was in contact with the surgical instrument maker covering for Dr. Holder and after review of circumstances and clinical presentation felt that the patient
needs urgent transfer via [facility] will make arrangements for MRI imaging with [facility] transfer center has agreed to call radiology department to obtain MRI results directly to them. I have informed family members at bedside including
patient's spouse of the need for urgent transfer I have signed the urgent transfer form for need for [facility]. Patient's only ongoing IV infusion is that of lactated Ringer's she did receive a dosage of methylprednisolone IV earlier in the day.
Discharge Plan
-
Patient Disposition: Acute Care Hospital
Condition: Serious
Discharge Orders:
Discharge Patient (As Directed); Ordered 11/02/23
Ordered By: Jason Talbot
[2023-11-02 15:21] VITALS: BP 128/81
--- NOTE | 2023-11-02 15:26 | PTCARENOTE ---
Report given to Neuro ICU at [facility]. Flight team arrived at 1530. Patient awake and alert , vital signs stable. present at bedside. Patient left unit with [facility] Flight Team.
[2023-11-02 21:30] LABS: Adrenocorticotropic Hormone 21.3 pg/mL (7.2-63.3)
[2023-11-05 03:14] LABS: Growth Hormone 0.65 ng/mL (0.05-8.00)
[2023-11-05 03:28] LABS: IGF-1 Z Score Calculation 0.8; Insulin-like Growth Factor I 182 ng/mL (69-253)
== END 2023-11-02 15:39 | disposition short-term general hospital (02) | DRG 645 ==
LOC: 4 WEST ACU 13:15
PROVIDERS: ADMITTING PHYSICIAN Internal Medicine; ATTENDING PHYSICIAN Internal Medicine; CONSULT PHYSICIAN Neurological Surgery; CONSULT PHYSICIAN Psychiatry & Neurology Neurology; EMERGENCY PHYSICIAN Emergency Medicine; FAMILY PHYSICIAN Family Medicine
DX: D35.2 Benign neoplasm of pituitary gland (principal); G43.001 Migraine without aura, not intractable, with status migrainosus; D50.9 Iron deficiency anemia, unspecified; J45.20 Mild intermittent asthma, uncomplicated; E55.9 Vitamin D deficiency, unspecified
CPT/HCPCS: 70450; 70553; 80048; 82024; 82533; 82607; 82728; 82746; 83001; 83002; 83003; 83735; 84146; 84305; 84439; 84443; 84481; 84703; 85025; 85027; 85652; 86140; 96374; 96375; 99285; A9575

== ENCOUNTER → 2024-05-23 15:06 | Outpatient (REF) | payer BC, SELFPAY | LOC: RAD 15:06 | PROVIDERS: ATTENDING PHYSICIAN Physician Assistant Medical | DX: R06.02 Shortness of breath (principal); Z68.31 Body mass index [BMI] 31.0-31.9, adult | CPT/HCPCS: 71046 ==